=== PATIENT | male | born 1970 | race Caucasian/White ===

== ENCOUNTER → 2019-01-01 | Outpatient (CLI) | payer BC ==
--- NOTE | 2019-01-01 12:46 | Diagnostic Imaging Report ---
PROCEDURE: US Scrotum. TECHNIQUE: Multiple real-time grayscale images were obtained over the scrotum in various projections bilaterally. INDICATION: Right-sided testicular pain for 2 to 3 days. Right testicle measures 5.6 x 2.5 x 3.4 cm and the left testicle measures 5.3 x 2.5 x 3.1 cm. Both testes demonstrate homogeneous echotexture. No discrete testicular mass is detected. There is blood flow to both testes. Right epididymis does appear to be somewhat enlarged and shows some hypervascularity suggestive of epididymitis. Left epididymis is unremarkable. No hydrocele is seen. There appears to be a left varicocele. IMPRESSION: 1. No evidence of testicular mass or vascular compromise. 2. Findings consistent with acute right epididymitis. 3. Left varicocele. Dictated by: Dictated on workstation # [id number]
== END ==
LOC: RAD 10:28
PROVIDERS: ATTEND Physician Assistant
DX: I86.1 Scrotal varices (principal)
CPT/HCPCS: 76870

== ENCOUNTER → 2021-05-01 | Outpatient (CLI) | payer BC ==
--- NOTE | 2021-05-01 09:27 | Diagnostic Imaging Report ---
INDICATION: DYSURIA TECHNIQUE: Multiple real-time grayscale sonographic images were obtained of the kidneys. CORRELATION: None FINDINGS: RIGHT KIDNEY: 12.0 x 6.0 x 5.4 cm. Jpia-bg-[id number] right-sided hydronephrosis is suggested. Etiology is indeterminate. LEFT KIDNEY: 12.5 x 6.3 x 5.0 cm. There is normal echotexture of the left renal parenchyma. No definitive calcification or hydronephrosis. URINARY BLADDER: The partially distended bladder has an unremarkable appearance. Bilateral ureteral jets are present. IMPRESSION: 1. Asymmetric [id number]-ti-[id number] right-sided hydroureteronephrosis. Etiology or significance is indeterminate. Obstructive process not excluded. Dictated by: Dictated on workstation # [id number]
== END ==
LOC: RAD 09:00
PROVIDERS: ATTEND Urology
DX: N13.30 Unspecified hydronephrosis (principal)
CPT/HCPCS: 76770

== ENCOUNTER 2021-05-09 05:32 | Outpatient (CLI) | payer BC ==
[~2021-05-09] VITALS: Ht 180.3 cm; Wt 109.3 kg
[2021-05-09] MEDS ORDERED: AMLO-251 PO (12:06)
== END 2021-05-09 14:24 | disposition home or self-care (01) ==
LOC: PREOP 05:32
PROVIDERS: ATTEND Surgery
DX: Z01.818 Encounter for other preprocedural examination (principal)

== ENCOUNTER 2021-05-16 10:25 | Day surgery (SDC) | payer BC ==
[~2021-05-16] VITALS: Ht 180 cm; Wt 109.0 kg
[~2021-05-16 10:25] MED LIST: AMLO-251 PO
[2021-05-16] MEDS ORDERED: LACTATED RINGERS 1,000 ML IV STA (10:32)
[2021-05-16] MEDS ORDERED: LACTATED RINGERS 1,000 ML IV ONE (10:38)
--- NOTE | 2021-05-16 10:40 | Progress Note-Pre Operative ---
Pre-Operative Progress Note H&P Reviewed The H&P was reviewed, patient examined and no changes noted. Date Seen by Provider: May 16, 2021 Time Seen by Provider: 10:00 Date H&P Reviewed: May 16, 2021 Time H&P Reviewed: 10:00 Pre-Operative Diagnosis: screening MITCHEL Alejandro MD May 16, 2021 10:39
--- NOTE | 2021-05-16 10:41 | Discharge Inst-Surgical ---
D/C Lap Instructions-JULIA Follow Up Activity as tolerated High Fiber Diet 25g or more per day Avoid Alcohol, Caffeine, Spicy [place] and Acid foods. Drink 64 fluid oz or more of fluids per day. Symptoms to Report: Fever over 101 degree F, Nausea/Vomiting If any problems/questions: Contact your physician or go to Emergency Room MITCHEL DUMONT MD May 16, 2021 10:41
[2021-05-16] MEDS ORDERED: ONDANSETRON 4 MG (ZOFRAN) ORAL DISSOLVE TAB PO PRN (10:45)
[2021-05-16] MEDS ORDERED: ONDANSETRON 4 MG/2 ML (SDV) Z0FRAN IVP PRN (10:45)
[2021-05-16 10:49] VITALS: BP 132/87
[2021-05-16] MEDS ORDERED: PROPOFOL INJECTION 50 ML IV ONE (11:22)
[2021-05-16] MEDS ORDERED: LIDOCAINE JELLY 2% 6 ML SYRINGE ONE (11:29)
[2021-05-16 11:55] VITALS: BP_SYST 121; BP_SYST 122; BP_DIAS 68; BP_DIAS 73
--- NOTE | 2021-05-16 12:10 | Progress Note-Post Operative ---
Post-Operative Progess Note Surgeon (s)/Brand Coordinator (s) Surgeon MITCHEL DUMONT MD Brand Coordinator: none Pre-Operative Diagnosis screening colo Post-Operative Diagnosis mild chronic stage 2 ext and int hemorrhoids, very mild sigmoid diverticulosis. Procedure & Operative Findings Date of Procedure 05/16/21 Procedure Performed/Findings colonoscopy Anesthesia Type mac Estimated Blood Loss Estimated blood loss (mL): minimal Specimens/Packing Specimens Removed none MITCHEL DUMONT MD May 16, 2021 12:10
[2021-05-16 12:40] VITALS: BP 125/68
--- NOTE | 2021-05-16 17:17 | OPERATIVE REPORT ---
DATE OF SERVICE: 05/16/2021 ATTENDING PRIMARY CARE PHYSICIAN: Dr. Raudel Lemon. PREOPERATIVE DIAGNOSIS: Screening colonoscopy. POSTOPERATIVE DIAGNOSES: Mild chronic stage II external and internal hemorrhoids, solitary sigmoid diverticula. PROCEDURE: Colonoscopy. SURGEON: Mitchel Dumont MD. ANESTHESIA: Monitored anesthesia care. ESTIMATED BLOOD LOSS: Minimal. FINDINGS: Same as postoperative diagnoses. DISPOSITION: The patient tolerated the procedure well. INDICATIONS: The patient is a 51-year-old male referred over to us for screening colonoscopy. He has not had a colonoscopy up to this point in his life. He otherwise is doing well, does not report any major issues with diarrhea nor constipation as well as no red blood per rectum nor any dark tarry stools. He also does not report any family history of colon cancer. DESCRIPTION OF PROCEDURE: The patient was brought to the endoscopy suite, laid in the left lateral decubitus position. After adequate IV pain and sedative medications and monitored anesthesia care, a digital rectal examination was performed. Mild chronic stage II external and internal hemorrhoids were identified, which were not actively edematous nor inflamed and no bleeding. Normal sphincter tone was felt and there were no palpable masses. Prostate gland was palpable and appeared normal. The endoscope was then intubated to the anus and rectum gently insufflated. The endoscope was then advanced through the valves of Rubio of the rectum with no polyps or any neoplasms identified. Through the sigmoid colon, a small solitary diverticula identified. The endoscope was then advanced to the remainder of the descending, transverse and ascending colon to the cecum, which were normal. No polyps or any neoplasms identified. The endoscope was then slowly withdrawn while taking a second look and suctioning of residual air with no additional findings. The patient tolerated the procedure well. We will recommend a high-fiber diet with a fiber supplement, which should equal or exceed 30 grams daily as well as significant amounts of water to promote soft stools on a daily basis. If he is asymptomatic, he does not need another colonoscopy for another 10 years. Job ID: [id number] DocumentID: [id number] Dictated Date: 05/16/2021 12:00:00 Operating Room Manager Date: 05/16/2021 17:17:07 Dictated By: MITCHEL DUMONT MD
--- NOTE | 2021-05-17 07:15 | Anesthesia-General Post-Op ---
MAC Patient Condition Mental Status/LOC: Same as Preop Cardiovascular: Satisfactory Nausea/Vomiting: Absent Respiratory: Satisfactory Pain: Controlled Complications: Absent Post Op Complications Complications None Follow Up Care/Instructions Patient Instructions None needed. Anesthesiology Discharge Order Discharge Order Patient was seen yesterday after the procedure and he was doing well, no complaints, stable vital signs, no apparent adverse anesthesia problems. LEELEE CONKLIN DO May 17, 2021 07:15
== END 2021-05-16 12:35 | disposition home or self-care (01) ==
LOC: ENDO 10:25
PROVIDERS: ATTEND Surgery
DX: Z12.11 Encounter for screening for malignant neoplasm of colon (principal); K57.30 Diverticulosis of large intestine without perforation or abscess without bleeding; K64.1 Second degree hemorrhoids; K64.4 Residual hemorrhoidal skin tags

== ENCOUNTER → 2021-05-28 | Outpatient (CLI) | payer BC ==
--- NOTE | 2021-05-28 16:34 | Diagnostic Imaging Report ---
EXAMINATION: CT abdomen and pelvis without contrast. TECHNIQUE: Multiple contiguous axial images were obtained through the abdomen and pelvis without the use of intravenous contrast. All CT scans use one or more of the following dose optimizing techniques: automated exposure control, MA and/or KvP adjustment based on patient size and exam type or iterative reconstruction. HISTORY: Hydronephrosis COMPARISON: 05/01/2021 FINDINGS: Lung bases: The lung bases are clear. Solid organs: The liver is normal. The gallbladder is normal. There is no biliary ductal dilation. Pancreas is normal. Spleen is normal. Adrenal glands are normal. A 0.6 cm calculus within the mid right ureter resulting in mild right hydronephrosis. A subcentimeter right renal cortical lesion is too small for accurate characterization. Bowel: Mild wall thickening of the distal esophagus. The stomach and small bowel are normal without obstruction. The colon and appendix are normal. Peritoneum: There is no intraperitoneal free fluid or free air. No suspicious lymphadenopathy. Vasculature: Normal without aneurysm. Musculoskeletal: Degenerative changes of the spine without suspicious osseous lesion or compression fracture. Pelvis: The prostate gland is normal. The urinary bladder is normal. IMPRESSION: 1. A 0.6 cm calculus within the mid right ureter resulting in mild right hydronephrosis. 2. Mild wall thickening of the distal esophagus. This could be seen with esophagitis in the appropriate clinical setting. If there is clinical concern, evaluation with upper endoscopy could be performed. Dictated by: Dictated on workstation # [id number]
== END ==
LOC: RAD 14:24
PROVIDERS: ATTEND Urology
DX: N13.2 Hydronephrosis with renal and ureteral calculous obstruction (principal)
CPT/HCPCS: 74176

== ENCOUNTER 2021-07-05 16:51 | Emergency (ER) | payer BC ==
[2021-07-05] MEDS ORDERED: TETANUS,DIPTH,PERTUSS P/F (BOOSTRIX) 0.5 ML VIAL IM ONE (17:30)
[2021-07-05] MEDS ORDERED: RABIES IMMUNE GLOBULIN (KEDRAB) 1,500 UNITS/10 ML IM ONE (17:30)
[2021-07-05] MEDS ORDERED: RABIES VACCINE HUMAN DIPL CELL 1 ML/2.5 UNITS SYR IM ONE (17:30)
--- NOTE | 2021-07-05 17:32 | ED Integumentary General ---
General Chief Complaint: Bite-Animal/Human/Insect Stated Complaint: DOG BITE RIGHT LEG Nursing Triage Note: PT AMB TO [facility] 9 WITH C/O WANTING A RABIES SHOT AFTER GETTING BIT BY A DOG ON FRIDAY AFTERNOON. PTS PCP SENT HIM HERE TO RECEIVE THE SHOT Source: patient Exam Limitations: no limitations (WIN ANDERSON) History of Present Illness Date Seen by Provider: July 05, 2021 Time Seen by Provider: 17:30 Initial Comments Patient is a 51-year-old male presents ED with dog bite to right thigh. This occurred on Friday. 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 He states he dog bit his right lower leg through his close. He has a small abrasion. Reports some mild bruising. Up-to-date on his tetanus. Denies of any fever, chills, increased redness or swelling of the right leg, body aches. Patient was sent to the ED by his primary care physician for rabies vaccine and immunoglobulin. Patient attempted to call the family regarding the dog. States they did not answer. Unsure if the dog has been vaccinated. (WIN ANDERSON) ATTENDING PHYSICIAN NOTE: I was physically present as attending physician in the emergency department during the care of this patient. I discussed initial approach to care of this patient including administration of immunoglobulin with HUSSEIN Webb. I was otherwise not directly involved in the decision making or delivery of care for this patient. (CHALINO NASH MD) Allergies and Home Medications Allergies Coded Allergies: No Known Drug Allergies (Unverified , 05/09/21) Patient Home Medication List Home Medication List Reviewed: Yes (WIN ANDERSON) Amlodipine Besylate (Amlodipine Besylate) 10 Mg Tablet, 10 MG PO DAILY, (Reported) Entered as Reported by: MIESHA AWAD on 05/09/21 1206 Review of Systems Review of Systems Constitutional: No see HPI, No diaphoresis EENTM: No hearing loss, No ear pain, No blurred vision Respiratory: No cough, No dyspnea on exertion, No orthopnea, No short of breath Cardiovascular: No chest pain Gastrointestinal: No abdominal pain, No dysphagia, No nausea, No vomiting Genitourinary: No decreased output, No discharge Musculoskeletal: No back pain, No joint pain Skin: No change in color, No change in hair/nails Psychiatric/Neurological: Denies Anxiety, Denies Depressed (WIN ANDERSON) All Other Systems Reviewed Negative Unless Noted: Yes (WIN ANDERSON) Past Qvprdhg-Yytuaq-Bbnjiw Hx Patient Social History Tobacco Use?: No Use of E-Cig and/or Vaping dev: No Substance use?: No Alcohol Use?: No Pt feels they are or have been: No (WIN ANDERSON) Immunizations Up To Date First/Initial COVID19 Vaccinat: YES Second COVID19 Vaccination Marques: YES Third COVID19 Vaccination Date: YES (WIN ANDERSON) Seasonal Allergies Seasonal Allergies: No (WIN ANDERSON) Past Medical History Surgery/Hospitalization HX: HTN SX: NECK FUSION, SKIN CANCER REMOVAL Surgeries: Yes (CERVICAL SPINE FUSION) Orthopedic Respiratory: No Cardiac: Yes Hypertension Neurological: No Genitourinary: No Gastrointestinal: No Musculoskeletal: Yes (CERVICAL FUSION) Endocrine: No HEENT: No Cancer: Yes Skin Did You Recieve Any Treatments: Yes Psychosocial: No Integumentary: Yes (SKIN CA REMOVED) Blood Disorders: No (WIN ANDERSON) Physical Exam Vital Signs Vital Signs - First Documented 07/05/21 17:10 Temp 36.2 Pulse 70 Resp 18 B/P (MAP) 149/82 (104) (CHALINO NASH MD) Vital Signs Capillary Refill : (WIN ANDERSON) General Appearance: WD/WN, no apparent distress HEENT: PERRL/EOMI, normal ENT inspection, TMs normal, pharynx normal Neck: non-tender, full range of motion, supple, normal inspection Cardiovascular: regular rate, rhythm, no gallop, no JVD Respiratory: chest non-tender, lungs clear, normal breath sounds, no respiratory distress Gastrointestinal: normal bowel sounds, non tender, soft, no organomegaly Back: normal inspection, no CVA tenderness, no vertebral tenderness Extremities: normal range of motion, other (Small superficial abrasion to right thigh lateral with bruising. No erythema or warmth, fluctuant mass) Neurologic/Psychiatric: spa therapist II-XII nml as tested, no motor/sensory deficits, alert, normal mood/affect, oriented x 3 Lymphatic: no adenopathy (WIN ANDERSON) Progress/Results/Core Measures Results/Orders Medications Given in ED Current Medications Medications Dose Ordered Sig/Lopez Route Start Time Stop Time Status Last Admin Dose Admin Diphtheria/ Tetanus/Acell Pertussis 0.5 ml ONCE ONCE IM 07/05/21 17:30 07/05/21 17:35 DC 07/05/21 17:44 0.5 ML Rabies Immune Globulin 2,160 units ONCE ONCE IM 07/05/21 17:30 07/05/21 17:35 DC 07/05/21 17:45 2,160 UNITS Rabies Vaccine Human Diploid Cell 1 ml ONCE ONCE IM 07/05/21 17:30 07/05/21 17:35 DC 07/05/21 18:08 1 ML (CHALINO NASH MD) Vital Signs/I&O 07/05/21 07/05/21 17:10 18:46 Temp 36.2 36.2 Pulse 70 68 Resp 18 18 B/P (MAP) 149/82 (104) 146/80 (CHALINO NASH MD) Blood Pressure Mean: 104 Departure Communication (PCP) Patient with a dog bite. Unknown if the dog has been vaccinated. Animal control was contacted. Patient requesting vaccine and immunoglobulin. Immunoglobulin and first dose of rabies vaccine was given here. Was updated tetanus. Was started on antibiotics today by his primary care physician. Does have some bruising to the right thigh. No evidence of cellulitis. Have patient follow-up with occupational health for the series. Return precautions were discussed with patient. He has no other other complaints (WIN ANDERSON) Impression Primary Impression: Dog bite Disposition: HOME, SELF-CARE Condition: Stable Departure-Patient Inst. Decision time for Depature: 18:33 (WIN ANDERSON) Referrals: KELSEA DAMON MD (PCP/Family) Primary Care Physician Patient Instructions: Animal Bites (DC) Add. Discharge Instructions: Need to follow-up with occupational health for further series of the rabies vaccine All discharge instructions reviewed with patient and/or family. Voiced understanding. WIN ANDERSON July 05, 2021 17:32 CHALINO NASH MD July 05, 2021 20:11
[2021-07-05 18:46] VITALS: BP 146/80
== END 2021-07-05 18:47 | disposition home or self-care (01) ==
LOC: EDUNIT# 16:51 → ER 16:54
DX: S71.151A Open bite, right thigh, initial encounter (principal); Z23 Encounter for immunization; W54.0XXA Bitten by dog, initial encounter
CPT/HCPCS: 90675; 90676; 90715; 99284

== ENCOUNTER 2021-07-08 09:08 | Outpatient (RCR) | payer BC ==
[~2021-07-08] VITALS: Ht 180 cm; Wt 109.0 kg
[2021-07-08 09:56] VITALS: BP 135/95
[2021-07-08] MEDS ORDERED: RABIES VACCINE HUMAN DIPL CELL 1 ML/2.5 UNITS SYR INJ ONE (10:00)
[2021-07-11 17:51] VITALS: BP 136/79
[2021-07-11 18:24] VITALS: BP 136/79
[2021-07-12] MEDS ORDERED: RABIES VACCINE HUMAN DIPL CELL 1 ML/2.5 UNITS SYR INJ ONE (10:00)
[2021-07-19] MEDS ORDERED: RABIES VACCINE HUMAN DIPL CELL 1 ML/2.5 UNITS SYR INJ ONE (10:00)
[2021-08-02] MEDS ORDERED: RABIES VACCINE HUMAN DIPL CELL 1 ML/2.5 UNITS SYR INJ ONE (10:00)
== END 2021-07-17 | disposition home or self-care (01) ==
LOC: SDC 09:08
PROVIDERS: ATTEND Physician Assistant
DX: Z20.3 Contact with and (suspected) exposure to rabies (principal)
CPT/HCPCS: 90675; 96372

== ENCOUNTER 2021-08-05 09:26 | Outpatient (RCR) | payer BC ==
[2021-07-19 08:42] VITALS: BP 137/84
[~2021-08-05 09:26] MED LIST changes: +RABIES VACCINE HUMAN DIPL CELL 1 ML/2.5 UNITS SYR INJ ONE
[2021-08-05 09:30] VITALS: BP 139/79
[2021-08-05] MEDS ORDERED: RABIES VACCINE HUMAN DIPL CELL 1 ML/2.5 UNITS SYR ONE (09:42)
== END 2021-08-05 09:45 | disposition still patient (30) ==
LOC: SDC 09:26
PROVIDERS: ATTEND Physician Assistant
DX: Z23 Encounter for immunization (principal); W54.0XXA Bitten by dog, initial encounter
CPT/HCPCS: 90471; 90675; 96372